=== PATIENT | female | born 1975 | race Caucasian/White ===

== ENCOUNTER → 2020-10-24 | Outpatient (CLI) | payer BC ==
[~2020-10-24] MED LIST: METHACHOLINE KIT (J7674) INH ONE
--- NOTE | 2020-10-24 16:00 | PFTRPT ---
Height: 60.00 Inches Weight: 190.00 Lbs BSA: 1.83 Diagnosis: R06.00 DATE: 10/24/2020 ORDERED BY: YASMEEN Lemus QUALITY: Study of excellent technical quality. PROCEDURE: Under protocol, methacholine was administered. At a dose of 2.5 mg or 13.875 CDUs, a 27% decline in the FEV1 was noted. PC of 0.66 is significant. Flow rates did return to baseline post bronchodilator administration. IMPRESSION: Positive methacholine challenge study. MTDD
== END ==
LOC: M CARPUL 14:46 → EDSEX 15:00
PROVIDERS: ATTEND Physician Assistant
DX: R06.00 Dyspnea, unspecified (principal)
CPT/HCPCS: 94070; J7674